=== PATIENT | female | born 1945 | race Caucasian/White ===

== ENCOUNTER 2020-07-21 11:04 | Outpatient (CLI) | payer MEDICARE | END 2020-07-21 11:05 | disposition home or self-care (01) | LOC: CSHMAMMO 11:04 | PROVIDERS: ATTEND Family Medicine | DX: Z12.31 Encounter for screening mammogram for malignant neoplasm of breast (principal) | CPT/HCPCS: 77063; 77067 ==

== ENCOUNTER 2021-08-19 08:19 | Outpatient (CLI) | payer MEDICARE | END 2021-08-19 08:20 | disposition home or self-care (01) | LOC: CSHULT 08:19 | PROVIDERS: ATTEND Family Medicine | DX: R10.11 Right upper quadrant pain (principal); R11.2 Nausea with vomiting, unspecified; R63.0 Anorexia; R19.8 Other specified symptoms and signs involving the digestive system and abdomen; N28.1 Cyst of kidney, acquired | CPT/HCPCS: 76705 ==

== ENCOUNTER 2021-08-24 13:42 | Outpatient (CLI) | payer MEDICARE | END 2021-08-24 13:43 | disposition home or self-care (01) | LOC: CSHCT 13:42 | PROVIDERS: ATTEND Family Medicine | DX: K76.9 Liver disease, unspecified (principal); N28.1 Cyst of kidney, acquired; R63.0 Anorexia; R10.11 Right upper quadrant pain; R10.9 Unspecified abdominal pain; R63.4 Abnormal weight loss; K66.9 Disorder of peritoneum, unspecified | CPT/HCPCS: 74176 ==

== ENCOUNTER 2022-12-12 10:18 | Outpatient (CLI) | payer MEDICARE | END 2022-12-12 10:19 | disposition home or self-care (01) | LOC: CSHMAMMO 10:18 | PROVIDERS: ATTEND Family Medicine | DX: Z12.31 Encounter for screening mammogram for malignant neoplasm of breast (principal); Z13.820 Encounter for screening for osteoporosis; Z78.0 Asymptomatic menopausal state | CPT/HCPCS: 77063; 77067; 77080 ==

== ENCOUNTER 2025-01-13 10:35 | Outpatient (CLI) | payer MEDICARE | END 2025-01-13 10:36 | disposition home or self-care (01) | LOC: CSHCT 10:35 | PROVIDERS: ATTEND Student in an Organized Health Care Education/Training Program | DX: R91.1 Solitary pulmonary nodule (principal); K22.89 Other specified disease of esophagus; N28.1 Cyst of kidney, acquired | CPT/HCPCS: 71250 ==